=== PATIENT | female | born 1950 | race Caucasian/White ===

== ENCOUNTER → 2021-02-24 | Day surgery (SDC) | payer MEDICARE, OTHER ==
[~2021-02-24] MED LIST: CELEXA20 MG PO; DAILY VALUE1 EACH PO; IBUPROFEN800 M1 PO; MAG-OXIDE 400M400 MG PO; NORVASC5 MG PO; PEPCID AC20 MG PO; POTASSIUM PO; PRAVASTATIN SOD10 MG PO; PRINIVIL20 MG PO; VITAMIN D PO
[2021-02-24 08:43] LABS: BUN/CREAT RATIO (CALC) 26.5 RATIO; CREATININE 0.83 mg/dL (0.51-0.95); POTASSIUM 3.9 mmol/L (3.5-5.1)
== END | disposition home or self-care (01) ==
LOC: FAS 07:39
PROVIDERS: Anesthesiology
DX: N84.0 Polyp of corpus uteri (principal); N81.4 Uterovaginal prolapse, unspecified; F41.9 Anxiety disorder, unspecified; I10 Essential (primary) hypertension; D25.9 Leiomyoma of uterus, unspecified; Z20.822 Contact with and (suspected) exposure to COVID-19; Z79.899 Other long term (current) drug therapy; Z90.49 Acquired absence of other specified parts of digestive tract; Z82.49 Family history of ischemic heart disease and other diseases of the circulatory system; Z87.891 Personal history of nicotine dependence
CPT/HCPCS: 36415; 80048; 88305; 93005; J2250; J3010; J7120